=== PATIENT | female | born 2000 | race Caucasian/White ===

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

== ENCOUNTER → 2018-01-01 | Outpatient (CLI) | payer BC ==
[2018-01-01 09:33] VITALS: BP 106/68; PULSE 75; RESP 14; TEMP 97.4; BMI 19.7
--- NOTE | 2018-01-01 09:50 | P.PN ---
Subjective Progress Note Date: 01/01/18 Principal diagnosis: results of ultrasound biopsy The patient is a 17-year-old white female who noted a lump in her right breast several months ago. This is staying the same in size however she underwent an ultrasound-guided core biopsy and 1016. Pathology is consistent with a fibroadenoma. The patient has some ecchymosis following the procedure but otherwise no complaints related to the procedure. Objective - Vital Signs Vital signs: Vital Signs Temp 97.4 F L 01/01/18 09:30 Pulse 75 01/01/18 09:30 Resp 14 01/01/18 09:30 BP 106/68 01/01/18 09:30 Pulse Ox 97 01/01/18 09:30 Intake & Output 12/31/17 01/01/18 01/01/18 18:59 06:59 18:59 Weight 52.163 kg - Constitutional General appearance: Present: average body habitus - EENT Eyes: Present: EOMI ENT: Present: hearing grossly normal - Neck Neck: Present: normal ROM - Respiratory Respiratory: bilateral: CTA - Cardiovascular Rhythm: regular Heart sounds: normal: S1, S2 - Gastrointestinal General gastrointestinal: Present: soft - Integumentary Integumentary Comment(s): right breast: Mild ecchymosis at the core biopsy site There remains a small palpable nodularity approximately 0.6-0.7 cm meters in size believed to be consistent with fibroadenoma this is in the 6 o'clock position of the breast - Musculoskeletal Musculoskeletal: Present: gait normal - Psychiatric Psychiatric: Present: A&O x's 3, appropriate affect, intact judgment & insight Assessment and Plan Assessment: Impression: 1. Fibroadenoma right breast Plan: 1. Right breast ultrasound 6 months 2. Repeat physician exam in 6 months 3. If this area seems to change or grow prior to then I would like to see her sooner I have had a discussion with the patient and her mother regarding the pathology results. They know that this is a benign lesion. They also understand that this will not go away on its own and if it should start to grow they should call me immediately. CC: Dr. Finn
== END | disposition home or self-care (01) ==
LOC: WWCWWP 08:53
PROVIDERS: ATTEND Surgery
DX: Z53.9 Procedure and treatment not carried out, unspecified reason (principal)

== ENCOUNTER → 2019-04-27 | Outpatient (CLI) | payer BC ==
[2019-04-27 16:10] LABS: Thyroid Peroxidase Antibodies 35.9 U/mL (0.0-60.0)
[2019-04-27 16:12] LABS: Prolactin 8.8 ng/mL (2.8-29.2); T4, Free (Free Thyroxine) 1.4 ng/dL (0.83-1.43)
[2019-04-27 19:22] LABS: ACTH 11.2 pg/mL (0.00-45.99)
== END | disposition home or self-care (01) ==
LOC: LABWHC1 09:33
PROVIDERS: ATTEND Internal Medicine Endocrinology, Diabetes & Metabolism
DX: E04.2 Nontoxic multinodular goiter (principal); R53.83 Other fatigue
CPT/HCPCS: 36415; 82024; 82533; 84146; 84439; 84443; 84480; 86376

== ENCOUNTER 2024-01-11 22:28 | Emergency (ER) | payer BC ==
[2024-01-11 22:55] VITALS: PULSE 112; RESP 18; TEMP 98.1
[2024-01-11 23:23] LABS: Basophils # (A) 0.1 k/uL (0-0.2); Basophils % (A) 1 %; Eosinophils % (A) 1 %; HCT 43.4 % (34.0-46.0); HGB 14.7 gm/dL (11.4-16.0); Lymphocytes # (A) 1.4 k/uL (1.0-4.8); Lymphocytes % (A) 19 %; MCH 29.5 pg (25.0-35.0); MCHC 33.8 g/dL (31.0-37.0); MCV 87.4 fL (80.0-100.0); Mean Platelet Volume 7.1; Monocytes # (A) 0.4 k/uL (0-1.0); Monocytes % (A) 6 %; Neutrophils # (A) 5.6 k/uL (1.3-7.7); Neutrophils % (A) 73 %; Platelet Count 239 k/uL (150-450); RBC 4.97 m/uL (3.80-5.40); RDW 11.5 % (11.5-15.5); WBC 7.6 k/uL (3.8-10.6)
[2024-01-11 23:37] LABS: Partial Thromboplastin Time 23.4 sec (22.0-30.0); Prothrombin Time 10.8 sec (10.0-12.5)
--- NOTE | 2024-01-11 23:40 | XR ---
EXAMINATION TYPE: XR chest 2V DATE OF EXAM: 01/11/2024 COMPARISON: NONE HISTORY: Chest pain TECHNIQUE: Frontal and lateral views of the chest are obtained. FINDINGS: There is no suspicious focal air space opacity, pleural effusion, or pneumothorax seen. T he cardiac silhouette size is within normal limits. Overlying EKG leads are seen. The osseous struct ures are intact. IMPRESSION: No acute process. [facility], , 01/11/2024 11:37 PM
[2024-01-11 23:55] LABS: ALT 17 U/L (4-34); AST 24 U/L (14-36); African American GFR (CKD) >90 (>60 ml/min/1.73 sqM); Albumin 4.8 g/dL (3.5-5.0); Alkaline Phosphatase 45 U/L (38-126); Anion Gap 14 mmol/L; Blood Urea Nitrogen 16 mg/dL (7-17); Calcium 9.6 mg/dL (8.4-10.2); Carbon Dioxide 18 mmol/L (22-30); Chloride 105 mmol/L (98-107); Glucose 109 mg/dL (74-99); Lipase 122 U/L (23-300); Magnesium 1.8 mg/dL (1.6-2.3); Non-African American GFR(CKD) >90 (>60 ml/min/1.73 sqM); Potassium 3.2 mmol/L (3.5-5.1); Sodium 137 mmol/L (137-145); Total Bilirubin 0.6 mg/dL (0.2-1.3); Total Protein 7.4 g/dL (6.3-8.2)
[2024-01-12 00:27] VITALS: BP 145/90
--- NOTE | 2024-01-12 01:05 | ED ---
Chest Pain HPI - General Chief Complaint: Chest Pain Stated Complaint: Chest Pain Time Seen by Provider: 01/11/24 23:00 Source: patient Mode of arrival: ambulatory Limitations: no limitations - History of Present Illness Initial Comments: 43-year-old female with past medical history of exercise-induced asthma who presents emergency department reporting chest pain. States that she was at home watching TV when she had sudden onset of right-sided chest pain that then led to the left side of her chest. She felt short of breath. Then she began having p alpitations. EMS was called shortly after. She denies history of cardiac disease. No history of DVT or PE. Denies fevers, chills or cough. No concern for . Denies any family history of sudden cardiac . She denies drug or alcohol use. Denies any additional symptoms to include headache, neck pain, abdominal pain. No other alleviating, precipitating or modifying factors - Related Data Home Medications Medication Instructions Recorded Confirmed FLUoxetine HCL [PROzac] 40 mg PO DAILY 11/13/17 01/01/18 Ibuprofen [Motrin Ib] 200 tab PO DAILY PRN 11/13/17 01/01/18 Allergies Allergy/AdvReac Type Severity Reaction Status Date / Time No Known Allergies Allergy Verified 01/11/24 22:55 Review of Systems ROS Statement: Those systems with pertinent positive or pertinent negative responses have been documented in the HPI. ROS Other: All systems not noted in ROS Statement are negative. Past Medical History Past Medical History: No Reported History Additional Past Medical History / Comment(s): Ruptured left regi's tendon - 11/2017 History of Any Multi-Drug Resistant Organisms: None Reported Past Surgical History: Orthopedic Surgery Additional Past Surgical History / Comment(s): left Muldraugh's tendon repair- 11/19/2017 Past Anesthesia/Blood Transfusion Reactions: No Reported Reaction Past Psychological History: Anxiety, Depression Past Alcohol Use History: None Reported Past Drug Use History: None Reported - Past Family History Mother Family Medical History: No Reported History Father Family Medical History: Hypertension Additional Family Medical History / Comment(s): controled with medication General Exam Limitations: no limitations General appearance: alert, in no apparent distress Head exam: Present: atraumatic, normocephalic, normal inspection Eye exam: Present: normal appearance, PERRL, EOMI. Absent: scleral icterus, conjunctival injection, periorbital swelling ENT exam: Present: normal exam, mucous membranes moist Neck exam: Present: normal inspection. Absent: tenderness, meningismus, lymphadenopathy Respiratory exam: Present: normal lung sounds bilaterally. Absent: respiratory distress, wheezes, rales, rhonchi, stridor Cardiovascular Exam: Present: regular rate, normal rhythm, normal heart sounds. Absent: systolic murmur, diastolic murmur, rubs, gallop, clicks GI/Abdominal exam: Present: soft, normal bowel sounds. Absent: distended, tenderness, guarding, rebound, rigid Extremities exam: Present: normal inspection, full ROM, normal capillary refill. Absent: tenderness, pedal edema, joint swelling, calf tenderness Back exam: Present: normal inspection Neurological exam: Present: alert, oriented X3, CN II-XII intact Psychiatric exam: Present: normal affect, normal mood Skin exam: Present: warm, dry, intact, normal color. Absent: rash Course Vital Signs 01/11/24 01/11/24 01/12/24 22:54 22:55 00:25 Temperature 98.1 F 98.1 F Pulse Rate 112 H 112 H 112 H Respiratory 18 18 18 Rate Blood Pressure 124/78 124/78 145/90 O2 Sat by Pulse 98 98 Oximetry Chest Pain MDM - MDM Was pt. sent in by a medical professional or institution ([facility], [facility], urgent care, hospital, or fdc...) When possible be specific @ -No Did you speak to anyone other than the patient for history (EMS, parent, family, police, friend...)? What history was obtained from this source @ -Spoke with EMS and parents for history Did you review nursing and triage notes (agree or disagree)? Why? @ -I reviewed and agree with nursing and triage notes Were old charts reviewed (outside hosp., previous admission, EMS record, old EKG, old radiological studies, urgent care reports/EKG's, fdc records)? Report findings @ -No old charts were reviewed Differential Diagnosis (chest pain, altered mental status, abdominal pain women, abdominal pain men, vaginal bleeding, weakness, fever, dyspnea, syncope, headache, dizziness, GI bleed, back pain, seizure, CVA, palpatations, mental health, musculoskeletal)? @ -Differential Chest Pain: Stable Angina, Unstable Angina, STEMI, NSTEMI Aortic Dissection, Pneumothorax, Musculoskeletal, Esophageal Spasm GERD, Cholecystitis, Pancreatitis, Zoster, this is not meant to be an all-inclusive list. EKG interpreted by me (3pts min.). @ -yes and demonstrates sinus tachycardia with a rate of 119. TN interval 148. QRS 96. QTc of 410. Mild ST depression 2, 3, aVF as well as V3 through V6 X-rays interpreted by me (1pt min.). @ -Yes and demonstrates no acute process CT interpreted by me (1pt min.). @ -None done U/S interpreted by me (1pt. min.). @ -None done What testing was considered but not performed or refused? (CT, X-rays, U/S, labs)? Why? @ -None What meds were considered but not given or refused? Why? @ -None Did you discuss the management of the patient with other professionals (professionals i.e. , PA, [facility], lab, RT, psych nurse, social work faculty member, marriage and family teacher, teacher, personnel training officer, welfare case worker)? Give summary @ -No Was smoking cessation discussed for >3mins.? @ -No Was critical care preformed (if so, how long)? @ -No Were there social determinants of health that impacted care today? How? (Homelessness, low income, unemployed, alcoholism, drug addiction, transportation, low edu. Level, literacy, decrease access to med. care, prison, rehab)? @ -No Was there de-escalation of care discussed even if they declined (Discuss DNR or withdrawal of care, Hospice)? DNR status @ -No What co-morbidities impacted this encounter? (DM, HTN, Smoking, COPD, CAD, Cancer, CVA, ARF, Chemo, Hep., AIDS, mental health diagnosis, sleep apnea, morbid obesity)? @ -None Was patient admitted / discharged? Hospital course, mention meds given and route, prescriptions, significant lab abnormalities, going to OR and other pertinent info. @ -Upon arrival patient seen and evaluated in bed 24. Thorough history and p hysical exam was performed. IV access was established. Laboratory studies are conducted. Twelve-lead EKG was performed. Chest x-ray was completed. Patient is reevaluated and heart rate has improved into the 80s. Patient feels much better at this time. I did discuss the diagnosis, differential and treatment plan. I replaced her potassium. Patient feels stable for discharge home at this time. Instructed she follow-up with her primary care doctor in 2 to 4 days. I requested that they completed an echo of her heart. She may require Holter monitoring. Return for any new or worsening symptoms. Patient agreeable plan she was discharged home in stable condition Undiagnosed new problem with uncertain prognosis? @ -No Drug Therapy requiring intensive monitoring for toxicity (Heparin, Nitro, Insulin, Cardizem)? @ -No Were any procedures done? @ -No Diagnosis/symptom? @ -Acute chest pain, acute tachycardia Acute, or Chronic, or Acute on Chronic? @ -Acute Uncomplicated (without systemic symptoms) or Complicated (systemic symptoms)? @ -complicated Side effects of treatment? @ -No Exacerbation, Progression, or Severe Exacerbation? @ -No Poses a threat to life or bodily function? How? (Chest pain, [place], [place], pneumonia, PE, COPD, DKA, ARF, appy, cholecystitis, CVA, Diverticulitis, Homicidal, Suicidal, threat to staff... and all critical care pts) @ -No Disposition Clinical Impression: Chest pain, Hypokalemia Disposition: HOME SELF-CARE Condition: Stable Instructions (If sedation given, give patient instructions): Chest Pain (ED), Hypokalemia (ED) Additional Instructions: Please follow-up with your primary care doctor. I recommend that they complete an echo of your heart. Return to the emergency department for any new or worsening symptoms Is patient prescribed a controlled substance at d/c from ED?: No Referrals: Nonstaff,Physician [Primary Care Provider] - 1-2 days Time of Disposition: 01:04
[2024-01-12] MEDS: POTASSIUM CHLORIDE ER 20 MEQ TAB.ER PO STA (01:14)
[2024-01-12 01:28] LABS: Amorphous Sediment,Urine Rare /hpf; Appearance,Urine Cloudy (Clear); Bilirubin,Urine Negative (Negative); Blood,Urine Negative (Negative); Color,Urine Colorless; Glucose,Urine (UA) Negative (Negative); Ketones,Urine Negative (Negative); Leukocyte Esterase,Urine Small (Negative); Mucus,Urine Rare /hpf; Nitrite,Urine Negative (Negative); PH, Urine 6.5 (5.0-8.0); Protein,Urine Negative (Negative); RBC,Urine 2 /hpf (0-5); Specific Gravity,Urine 1.017 (1.001-1.035); Squamous Epithelial Cell,Urine 8 /hpf (0-4); Urobilinogen,Urine <2.0 mg/dL (<2.0); WBC,Urine 16 /hpf (0-5)
== END 2024-01-12 01:31 | disposition home or self-care (01) ==
LOC: EC 22:28
DX: R07.89 Other chest pain (principal); E87.6 Hypokalemia
CPT/HCPCS: 36415; 71046; 80053; 81001; 81025; 83690; 83735; 84484; 85025; 85379; 85610; 85730; 93005; 99285